=== PATIENT | female | born 1970 | race African-American/Black ===

== ENCOUNTER 2018-06-28 18:39 | Emergency (ER) | payer SELFPAY ==
[~2018-06-28] VITALS: Ht 162.6 cm; Wt 70.3 kg
[2018-06-28] MEDS ORDERED: fentaNYL PF VIAL 100 MCG/2 ML VIAL IV ONE (19:30)
[2018-06-28] MEDS ORDERED: LIDOCAINE 2%/EPI 1:100,000 20 ML VIAL. IJ ONE (19:30)
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
[2018-06-28] MEDS ORDERED: OXYC1TAB15 PO (21:20)
[2018-06-28] MEDS ORDERED: ORPH100T PO (21:20)
[2018-06-28] MEDS ORDERED: POLY10DR3 EACHEYE (21:20)
[2018-06-28] MEDS ORDERED: CHLO15MO2 PO (21:20)
[2018-06-28 21:21] VITALS: BP 160/106
[2018-06-28] MEDS ORDERED: oxyCODONE/APAP 5/325 1 TAB TABLET PO ONE (22:00)
== END 2018-06-28 21:28 | disposition home or self-care (01) ==
LOC: ER 18:39 → EDBD 18:42 → ER 21:28
DX: S16.1XXA Strain of muscle, fascia and tendon at neck level, initial encounter (principal); S01.512A Laceration without foreign body of oral cavity, initial encounter; H10.33 Unspecified acute conjunctivitis, bilateral; K21.9 Gastro-esophageal reflux disease without esophagitis; Z90.710 Acquired absence of both cervix and uterus; Z88.8 Allergy status to other drugs, medicaments and biological substances; V43.52XA Car driver injured in collision with other type car in traffic accident, initial encounter; Y93.89 Activity, other specified; Y92.410 Unspecified street and highway as the place of occurrence of the external cause; Y99.8 Other external cause status
CPT/HCPCS: 70450; 70486; 72125; 96372; 96374; 99284; J3010; J3490

== ENCOUNTER 2018-07-16 16:44 | Emergency (ER) | payer OTHER ==
[~2018-07-16] VITALS: Ht 162.6 cm; Wt 70.3 kg
[~2018-07-16 16:44] MED LIST: CHLO15MO2 PO; ORPH100T PO; OXYC1TAB15 PO; POLY10DR3 EACHEYE
[2018-07-16 18:00] VITALS: BP 136/82
[2018-07-16] MEDS: cefTRIAXone IV Push 1 GM VIAL. IVP ONE (18:01)
[2018-07-16 18:11] LABS: BASO % 0 % (0-3); EOS % 0 % (0-3); HEMATOCRIT 32.2 % (36.0-47.0); HEMOGLOBIN 11.3 g/dL (12.0-15.5); LYMPH # 2.5 x10^3/uL (1.0-4.8); LYMPH % 37 % (24-48); MEAN CORPUSCULAR HEMOGLOBIN 31 pg (25-35); MEAN CORPUSCULAR HGB CONC 35 g/dL (31-37); MEAN CORPUSCULAR VOLUME 89 fL (79-100); MONO # 0.4 x10^3/uL (0.0-1.1); MONO % 7 % (0-9); NEUT # 3.8 x10^3uL (1.8-7.7); NEUT % 56 % (31-73); PLATELET COUNT 219 x10^3/uL (140-400); RED BLOOD COUNT 3.61 x10^6/uL (3.50-5.40); RED CELL DISTRIBUTION WIDTH 12.7 % (11.5-14.5); WHITE BLOOD COUNT 6.8 x10^3/uL (4.0-11.0)
[2018-07-16] MEDS ORDERED: IOHEXOL 300 MG/ML 100ML VIAL. IV ONE (18:30)
[2018-07-16 18:31] LABS: CALCIUM 9.3 mg/dL (8.5-10.1); CREATININE 0.8 mg/dL (0.6-1.0); GFR 92.6; POTASSIUM 3.7 mmol/L (3.5-5.1)
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
[2018-07-16] MEDS ORDERED: SULF1TAB24 PO (19:58)
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
== END 2018-07-16 20:19 | disposition home or self-care (01) ==
LOC: ER 16:44
DX: L03.211 Cellulitis of face (principal); R59.1 Generalized enlarged lymph nodes; K21.9 Gastro-esophageal reflux disease without esophagitis
CPT/HCPCS: 36415; 70487; 80048; 81025; 85025; 87040; 96374; 99284; J0696

== ENCOUNTER 2018-07-18 13:55 | Emergency (ER) | payer OTHER ==
[~2018-07-18] VITALS: Ht 172.7 cm; Wt 68.7 kg
[~2018-07-18 13:55] MED LIST changes: +SULF1TAB24 PO
[2018-07-18] MEDS ORDERED: CLINDAMYCIN 600MG PREMIX 50 ML IV ONE (15:00)
[2018-07-18] MEDS ORDERED: IV NORMAL SALINE 1000ML BAG 1,000 ML IV ONE (15:00)
[2018-07-18 15:09] LABS: BASO # 0.1 x10^3/uL (0.0-0.2); BASO % 1 % (0-3); EOS % 0 % (0-3); HEMATOCRIT 33.4 % (36.0-47.0); HEMOGLOBIN 11.9 g/dL (12.0-15.5); LYMPH # 3.4 x10^3/uL (1.0-4.8); LYMPH % 42 % (24-48); MEAN CORPUSCULAR HEMOGLOBIN 32 pg (25-35); MEAN CORPUSCULAR HGB CONC 36 g/dL (31-37); MEAN CORPUSCULAR VOLUME 89 fL (79-100); MONO # 0.5 x10^3/uL (0.0-1.1); MONO % 6 % (0-9); NEUT # 4.2 x10^3uL (1.8-7.7); NEUT % 51 % (31-73); PLATELET COUNT 202 x10^3/uL (140-400); RED BLOOD COUNT 3.77 x10^6/uL (3.50-5.40); RED CELL DISTRIBUTION WIDTH 12.6 % (11.5-14.5); WHITE BLOOD COUNT 8.2 x10^3/uL (4.0-11.0)
[2018-07-18] MEDS ORDERED: ACETAMINOPHEN 500 MG TABLET PO ONE (15:15)
[2018-07-18 15:22] LABS: CALCIUM 9.3 mg/dL (8.5-10.1); CREATININE 1.2 mg/dL (0.6-1.0); POTASSIUM 3.3 mmol/L (3.5-5.1)
--- NOTE | 2018-07-18 15:38 | PHYS DOC ---
Past Medical History Past Medical History: GERD, Other Additional Past Medical Histor: LUPUS SLE Past Surgical History: Hysterectomy Alcohol Use: None Drug Use: None Adult General Chief Complaint Chief Complaint: CELLULITIS HPI HPI Patient is a 47 year old female who presents with cellulitis of the chin. Patient was evaluated last week when she sustained injury to the inner lower lip. She did have sutures placed at that time. She was then evaluated again a couple days earlier and diagnosed with cellulitis at the site where she had an abrasion on the inferior aspect of the mentum. She was started on Bactrim at that time. She presents to the ER today complaining of nausea and vomiting. Her symptoms started prior to beginning Bactrim. She also had some worsening pain at the site. She noted some fevers at home and became concerned that her infection has spread so she came to the ER. Her Arrival Is 99.1. The Patient Has No Headaches or Neck Stiffness. She Does Not Complain of Worsening Redness or expansion of the cellulitic symptoms around the chin area. Her nausea and vomiting did resolve this morning. She has been able to tolerate food and fluids today. Review of Systems Review of Systems Constitutional: + fever Eyes: Denies change in visual acuity HENT: Denies nasal congestion Respiratory: Denies cough or shortness of breath Cardiovascular: No additional information not addressed in HPI GI: Denies abdominal pain : Denies dysuria or hematuria Musculoskeletal: Denies back pain Integument: Denies rash or skin lesions Neurologic: Denies headache All other systems were reviewed and found to be within normal limits, except as documented in this note. Current Medications Current Medications Current Medications Medications (Trade) Dose Ordered Sig/Ayesha Start Time Stop Time Status Last Admin Dose Admin Acetaminophen (Tylenol) 1,000 mg 1X ONCE 07/18/18 15:15 07/18/18 15:16 DC 07/18/18 15:19 1,000 MG Clindamycin Phosphate 50 ml @ 100 mls/hr 1X ONCE 07/18/18 15:00 07/18/18 15:29 DC 07/18/18 16:03 100 MLS/HR Sodium Chloride 1,000 ml @ 1,000 mls/hr 1X ONCE 07/18/18 15:00 07/18/18 15:59 DC 07/18/18 15:19 1,000 MLS/HR Allergies Allergies Allergies Coded Allergies Type Severity Reaction Last Updated Verified neomycin Allergy Intermediate 06/28/18 Yes sulindac Allergy Intermediate 06/28/18 Yes Physical Exam Physical Exam Constitutional: Well developed, well nourished, no acute distress, non-toxic appearance HENT: Normocephalic, atraumatic, bilateral external ears normal, oropharynx moist, no oral exudates, nose normal, + cellulitis of skin on the right side of the chin with some warmth to touch. No abscess. The floor of the mouth is soft. The submandibular space is also soft and uninvolved. Posterior oral pharynx is clear Eyes: PERRLA, EOMI, conjunctiva normal Neck: Normal range of motion, no tenderness Cardiovascular:Heart rate regular rhythm, no murmur Lungs & Thorax: Bilateral breath sounds clear to auscultation Skin: Warm, dry, no erythema Back: No tenderness Extremities: No tenderness Neurologic: Alert and oriented X 3 Psychologic: Affect normal Current Patient Data Vital Signs Vital Signs Date Time Temp Pulse Resp B/P (MAP) Pulse Ox O2 Delivery O2 Flow Rate FiO2 07/18/18 15:45 88 18 117/76 (90) 98 Room Air 07/18/18 14:15 99.1 99.1 Lab Values Laboratory Tests Test 07/18/18 14:20 White Blood Count 8.2 x10^3/uL (4.0-11.0) Red Blood Count 3.77 x10^6/uL (3.50-5.40) Hemoglobin 11.9 g/dL (12.0-15.5) L Hematocrit 33.4 % (36.0-47.0) L Mean Corpuscular Volume 89 fL (79-100) Mean Corpuscular Hemoglobin 32 pg (25-35) Mean Corpuscular Hemoglobin Concent 36 g/dL (31-37) Red Cell Distribution Width 12.6 % (11.5-14.5) Platelet Count 202 x10^3/uL (140-400) Neutrophils (%) (Auto) 51 % (31-73) Lymphocytes (%) (Auto) 42 % (24-48) Monocytes (%) (Auto) 6 % (0-9) Eosinophils (%) (Auto) 0 % (0-3) Basophils (%) (Auto) 1 % (0-3) Neutrophils # (Auto) 4.2 x10^3uL (1.8-7.7) Lymphocytes # (Auto) 3.4 x10^3/uL (1.0-4.8) Monocytes # (Auto) 0.5 x10^3/uL (0.0-1.1) Eosinophils # (Auto) 0.0 x10^3/uL (0.0-0.7) Basophils # (Auto) 0.1 x10^3/uL (0.0-0.2) Sodium Level 142 mmol/L (136-145) Potassium Level 3.3 mmol/L (3.5-5.1) L Chloride Level 104 mmol/L (98-107) Carbon Dioxide Level 27 mmol/L (21-32) Anion Gap 11 (6-14) Blood Urea Nitrogen 13 mg/dL (7-20) Creatinine 1.2 mg/dL (0.6-1.0) H Estimated GFR (Cockcroft-Gault) 58.0 Glucose Level 127 mg/dL (70-99) H Calcium Level 9.3 mg/dL (8.5-10.1) Laboratory Tests 07/18/18 14:20 Laboratory Tests 07/18/18 14:20 EKG EKG [] Radiology/Procedures Radiology/Procedures [] Course & Med Decision Making Course & Med Decision Making Pertinent Labs and Imaging studies reviewed. (See chart for details) 15:00: Patient is evaluated in the emergency department. Overall, her physical exam is benign other than cellulitis which is a known diagnosis. She also has some dissolvable stitches still in place in the tissue of the inner lip. 16:20: All labs are reviewed. The patient is mildly dehydrated. She was given 1 L of fluid in the ER. I attempted to remove the sutures in the lower lip on the inner aspect but this created some discomfort for the patient and she opted to leave the sutures in until they dissolve. Plan is for discharge to home. She is provided a prescription for clindamycin. She is encouraged to continue the sulfa-based drugs she is taking. She does not have any symptoms of allergy to this medication. Return to the ER for any new or worsening symptoms. Dragon Disclaimer Dragon Disclaimer This electronic medical record was generated, in whole or in part, using a voice recognition dictation system. Departure Departure Disposition: HOME, SELF-CARE Condition: GOOD Referrals: UNKNOWN PCP NAME (PCP) Scripts Clindamycin Hcl (CLINDAMYCIN HCL) 300 Mg Capsule 300 MG PO QID, #40 CAP Prov: PALLAVI ECHOLS DO 07/18/18 Ondansetron (ONDANSETRON ODT) 4 Mg Tab.rapdis 1 TAB PO PRN Q6-8HRS PRN for NAUSEA, #16 TAB Prov: PALLAVI ECHOLS DO 07/18/18 PALLAVI ECHOLS DO Jul 18, 2018 15:38
[2018-07-18] MEDS ORDERED: CLIN300C8 PO (16:22)
[2018-07-18] MEDS ORDERED: ONDA4TAB12 PO (16:22)
[2018-07-18 16:38] VITALS: BP 122/72
== END 2018-07-18 16:46 | disposition home or self-care (01) ==
LOC: ER 13:55
DX: L03.211 Cellulitis of face (principal); R11.2 Nausea with vomiting, unspecified; R50.9 Fever, unspecified; K21.9 Gastro-esophageal reflux disease without esophagitis; Z88.1 Allergy status to other antibiotic agents; Z88.8 Allergy status to other drugs, medicaments and biological substances
CPT/HCPCS: 36415; 80048; 85025; 96361; 96365; 99283; J3490; J7030